=== PATIENT | female | born 1945 | race African-American/Black ===

== ENCOUNTER 2018-12-06 10:26 | Emergency (ER) | payer OTHER ==
[2018-12-06 10:33] VITALS: BP 138/58; PULSE 70; TEMP 98.6; BMI 45.2
[2018-12-06] MEDS ORDERED: IBUPROFEN 400 MG TABLET (FP) PO ONE ×2 (11:22→11:25)
--- NOTE | 2018-12-06 11:23 | PDOC ---
History of Present Illness - General Chief Complaint: Pain, Acute Stated Complaint: LF KNEE PAIN Time Seen by Provider: 12/06/18 10:38 History Source: Patient Exam Limitations: No Limitations Past History - Travel Traveled outside of the country in the last 30 days: No Close contact w/someone who was outside of country & ill: No - Past Medical History Allergies/Adverse Reactions: Allergies Allergy/AdvReac Type Severity Reaction Status Date / Time No Known Allergies Allergy Verified 12/06/18 10:33 Home Medications: Ambulatory Orders Cane 1 each MC ASDIR #1 each 12/06/18 Meloxicam 7.5 mg PO DAILY #10 tablet 12/06/18 COPD: No HTN: No - Surgical History Cardiac Surgery: No - Immunization History Immunization Up to Date: No - Suicide/Smoking/Psychosocial Hx Smoking History: Never smoked Have you smoked in the past 12 months: No Information on smoking cessation initiated: No Hx Alcohol Use: No Drug/Substance Use Hx: No Review of Systems - Review of Systems Able to Perform ROS?: Yes Comments:: 12/06/18 11:22 CONSTITUTIONAL: Absent: fever, chills, diaphoresis, generalized weakness, malaise, loss of appetite MUSCULOSKELETAL: Present: L knee pain Absent: myalgia, arthralgia, joint swelling SKIN: Absent: rash, itching, pallor NEUROLOGIC: Absent: headache, focal weakness or paresthesias, dizziness, unsteady gait, seizure, mental status changes, bladder or bowel incontinence PSYCHIATRIC: Absent: anxiety, depression, suicidal or homicidal ideation, hallucinations. Is the patient limited Japanese proficient: No *Physical Exam - Vital Signs Last Vital Signs Temp Pulse Resp BP Pulse Ox 98.6 F 70 16 138/58 L 97 12/06/18 10:31 12/06/18 10:31 12/06/18 10:31 12/06/18 10:31 12/06/18 10:31 - Physical Exam Comments: 12/06/18 11:22 GENERAL: The patient is awake, alert, and fully oriented, in no acute distress. HEAD: Normal with no signs of trauma. EYES: Pupils equal, round and reactive to light, extraocular movements intact, sclera anicteric, conjunctiva clear. EXTREMITIES: Normal range of motion, no edema. NEUROLOGICAL: Normal speech, normal gait. PSYCH: Normal mood, normal affect. SKIN: Warm, Dry, normal turgor, no rashes or lesions noted. *DC/Admit/Observation/Transfer Diagnosis at time of Disposition: Knee pain, left Qualifiers: Chronicity: acute Qualified Code(s): M25.562 - Pain in left knee - Discharge Dispostion Disposition: HOME Condition at time of disposition: Stable Decision to Admit order: No - Referrals Referrals: Rodolfo Doe MD [Primary Care Provider] - Aakash Sauceda DO [Staff Physician] - - Patient Instructions Printed Discharge Instructions: DI for Osteoarthritis Additional Instructions: you were evaluated for your knee pain today. Your x-ray shows that you have arthritis of the knee. Please take the meloxicam daily to help with her symptoms. Eat something before taking this medication. Use the cane to help you walk. Please follow-up with orthopedics on Saturday. A referral has been provided. Return to the emergency department for any new or worsening symptoms. - Post Discharge Activity
== END 2018-12-06 12:06 | disposition home or self-care (01) ==
LOC: JERFT 10:26
DX: M25.562 Pain in left knee (principal)
CPT/HCPCS: 73562-TC-LT-FY; 99281-25